=== PATIENT | female | born 1980 | race Caucasian/White ===

== ENCOUNTER 2024-09-08 06:52 | Emergency (ER) | payer SELFPAY ==
[2024-09-08 06:55] VITALS: BP 168/93; PULSE 99; RESP 18; TEMP 36.9; O2SAT 99
--- NOTE | 2024-09-08 07:02 | ED_ITS ---
HPI - General Adult General Chief complaint: Dental/Oral Stated complaint: fall Time Seen by Provider: 09/08/24 07:02 Course Vital Signs Vital signs: Vital Signs Temperature 36.9 C 09/08/24 06:55 Pulse Rate 99 09/08/24 06:55 Respiratory Rate 18 09/08/24 06:55 Blood Pressure 168/93 H 09/08/24 06:55 Pulse Oximetry 99 09/08/24 06:55 Oxygen Delivery Room Air 09/08/24 06:55 Temperature 36.9 C 09/08/24 06:55 Pulse Rate 99 09/08/24 06:55 Respiratory Rate 18 09/08/24 06:55 Blood Pressure 168/93 H 09/08/24 06:55 Pulse Oximetry 99 09/08/24 06:55 Oxygen Delivery Room Air 09/08/24 06:55 Medical Decision Making Vital Signs Vital Signs: Vital Signs Temperature 36.9 C 09/08/24 06:55 Pulse Rate 99 09/08/24 06:55 Respiratory Rate 18 09/08/24 06:55 Blood Pressure 168/93 H 09/08/24 06:55 Pulse Oximetry 99 09/08/24 06:55 Oxygen Delivery Room Air 09/08/24 06:55 Temperature 36.9 C 09/08/24 06:55 Pulse Rate 99 09/08/24 06:55 Respiratory Rate 18 09/08/24 06:55 Blood Pressure 168/93 H 09/08/24 06:55 Pulse Oximetry 99 09/08/24 06:55 Oxygen Delivery Room Air 09/08/24 06:55 Discharge Plan Discharge Patient Language: Upper Sorbian Follow-up/Referrals: UNKNOWN,DOCTOR [Primary Care Provider] - Stand Alone Forms: Work/School Release IP
--- NOTE | 2024-09-08 07:12 | ED.DENTAL ---
HPI - Dental/Oral General Chief complaint: Dental/Oral Stated complaint: fall Time Seen by Provider: 09/08/24 07:02 Source: patient Mode of arrival: ambulatory Limitations: no limitations History of Present Illness HPI Narrative: 44-year-old female with dental caries presents to the ED with a 1 day history of -- right lower jaw swelling. the jaw is minimally tender on firm palpation. No dental pain -- the patient had a fall yesterday at 10:00 a.m. and hit the right side of the face on the car door. No immediate pain noted. When she got up this morning she noted right lower jaw swelling . No fever or chills. Teeth map:  1. right lower jaw swelling lateral to tooth number 29 /28 Onset (ago): day(s) ( 1 day) Relieving factors: nothing Exacerbating factors: nothing Context: history of dental caries Associated symptoms: gum swelling Treatment prior to arrival: none Related Data Allergies Allergy/AdvReac Type Severity Reaction Status Date / Time No Known Allergies Allergy Verified 09/08/24 07:24 Review of Systems Review of Systems: All systems reviewed & are unremarkable except as noted in HPI and below [facility] Past Medical History Medical History (Updated 09/08/24 @ 07:20 by Khalif Dawson MD) Dental caries Exam Narrative: blood pressure 168/93 Const: General: no acute distress Orientation/consciousness: patient oriented x3 Limitations: no limitations HENMT: Head: normal to inspection Ears: external ears normal Face/Nose/Sinus: Normal external nose present Face and sinus: normal facial exam Mouth: Yes Normal oral and palatal mucosa present Teeth and gingiva: abnormal tooth and associated gingiva Throat: posterior oropharynx normal Other: Right lower jaw swelling adjacent to the right lower premolars. No dental pain. Extensive gingivitis. No obvious dental decay noted in the right lower teeth. Extensive dental caries elsewhere Eyes: Conjunctivae: conjunctivae normal Pupils: Equal, round and reactive pupils present EOM: EOMs intact bilaterally Direct Ophthalmoscopy: no photophobia Neck: Neck: normal visual inspection, no lymphadenopathy and no meningeal signs Chest: Chest palpation & inspection: normal inspection of the chest Resp: Effort & Inspection: normal respiratory effort Auscultation: clear to auscultation bilaterally Cardio: Rate: regular rate Rhythm: regular rhythm GI: Auscultation: normal bowel sounds Other: no tenderness/ rigidity/ rebound. : General: Yes no CVA tenderness Back/Spine/Pelvis: Back: no CVA tenderness Skin: General skin exam: normal color Rashes: no rashes Wounds: no wounds Neuro: General: patient oriented x3, moves all extremities, no meningeal signs, no focal motor deficits and CN's II-XI intact bilaterally Cranial nerves: Yes Nystagmus not present Speech: normal speech Gait exam (Neuro): Normal gait present Extrem: General: normal to inspection and no clubbing, cyanosis or edema Psych: Mental Status: mental status grossly normal Affect: normal affect Attitude: cooperative Course Course Emergency Course: jaw swelling-- the swelling does not appear to be secondary to trauma. Offered to do a CT scan of the jaw / face but the patient does not have insurance and refused the CT scan. gingivitis dental caries Vital Signs Vital signs: Vital Signs Temperature 36.9 C 09/08/24 06:55 Pulse Rate 99 09/08/24 06:55 Respiratory Rate 18 09/08/24 06:55 Blood Pressure 168/93 H 09/08/24 06:55 Pulse Oximetry 99 09/08/24 06:55 Oxygen Delivery Room Air 09/08/24 06:55 Temperature 36.9 C 09/08/24 06:55 Pulse Rate 99 09/08/24 06:55 Respiratory Rate 18 09/08/24 06:55 Blood Pressure 168/93 H 09/08/24 06:55 Pulse Oximetry 99 09/08/24 06:55 Oxygen Delivery Room Air 09/08/24 06:55 MDM - Dental/Oral MDM Narrative Medical decision making narrative: right lower jaw swelling with gingivitis dental caries Differential Diagnosis Differential diagnosis: Likely gingival abscess and dental abscess Discharge Plan Discharge Clinical Impression: Dental caries, Gingivitis, Jaw swelling Patient Disposition: Home, Self-Care Condition: Stable Instructions: Antibiotic Form, Gingivitis (ED) Patient Language: Grenadian Prescriptions: New clindamycin HCl 300 mg capsule 300 mg PO Q8H Qty: 20 0RF Follow-up/Referrals: UNKNOWN,DOCTOR [Non-Staff] - Stand Alone Forms: Work/School Release IP Time of Disposition: 07:35
== END 2024-09-08 07:39 | disposition home or self-care (01) ==
LOC: CHSED 07:28
PROVIDERS: Emergency Provider Internal Medicine Critical Care Medicine; PCP Family Medicine
DX: K02.9 Dental caries, unspecified (principal); K05.10 Chronic gingivitis, plaque induced; M27.9 Disease of jaws, unspecified
CPT/HCPCS: 99283